=== PATIENT | male | born 1975 | race Caucasian/White ===

== ENCOUNTER → 2017-10-01 12:27 | Outpatient (CLI) | payer OTHER, MEDICAID, SELFPAY ==
[2017-10-01 12:58] LABS: BUN Creatinine Ratio 22.2 (6-22); Calcium 9.5 mg/dL (8.4-10.2); Estimated Glomerular Filt Rate > 60.0 mL/min (>60); Glucose 143 mg/dL (70-100); HEMOLYSIS < 15 (0-50); Potassium 3.8 mmol/L (3.4-5.1); Sodium 140 mmol/L (137-145)
[2017-10-01 13:31] LABS: Testosterone 59.7 ng/dL (132-813)
[2017-10-04 16:55] LABS: Estradiol 107 pg/mL (< 40)
== END ==
PROVIDERS: Visit Provider Family Medicine
DX: E34.9 Endocrine disorder, unspecified (principal)
CPT/HCPCS: 36415; 80048; 82670; 84403